=== PATIENT | male | born 1965 | race Caucasian/White ===

== ENCOUNTER 2017-09-17 12:30 | Emergency (ER) | payer OTHER ==
[2017-09-17 12:36] VITALS: BP 136/84; PULSE 97; TEMP 98.1; BMI 38.2
[2017-09-17] MEDS ORDERED: ALBUTEROL SO4 2.5/IPRATROPIUM 0.5 INH SOL 3 ML VIAL.NEB. NEB ONE ×2 (14:15→14:19)
--- NOTE | 2017-09-17 14:15 | PDOC ---
History of Present Illness - General Chief Complaint: Respiratory Stated Complaint: COUGH Time Seen by Provider: 09/17/17 14:07 History Source: Patient Exam Limitations: No Limitations - History of Present Illness Initial Comments: 09/17/17 14:16 states woke up at 3 AM this morning with severe cough and results and some shortness of breath, states felt like he could not catch his breath. Severity: reports: mild Past History - Travel Traveled outside of the country in the last 30 days: No - Past Medical History Allergies/Adverse Reactions: Allergies Allergy/AdvReac Type Severity Reaction Status Date / Time aspirin AdvReac Vomiting Verified 09/17/17 12:35 Home Medications: Ambulatory Orders Albuterol Sulfate [Proventil HFA Inhaler -] 1 - 2 inh PO QID #1 inhaler Fluticasone Prop 0.05% Nasal [Flonase] 2 spray NS BID #1 spraybtl 09/17/17 COPD: No Hypercholesterolemia: Yes Other medical history: vertigo - Surgical History Abdominal Surgery: Yes (LIPOSUCTION) - Suicide/Smoking/Psychosocial Hx Smoking Status: No Smoking History: Never smoked Number of Cigarettes Smoked Daily: 0 Hx Alcohol Use: No Substance Use Type: None Review of Systems - Review of Systems Able to Perform ROS?: Yes Is the patient limited [place] proficient: Yes Constitutional: Yes: Symptoms Reported, See HPI. No: Malaise HEENTM: Yes: See HPI, Nose Congestion. No: Symptoms Reported, Throat Pain (but posterior sinus drainage) Respiratory: Yes: Symptoms reported, See HPI, Cough, Shortness of Breath Musculoskeletal: Yes: Symptoms Reported, See HPI All Other Systems: Reviewed and Negative *Physical Exam - Vital Signs Last Vital Signs Temp Pulse Resp BP Pulse Ox 98.1 F 97 H 18 136/84 99 09/17/17 12:33 09/17/17 12:33 09/17/17 12:33 09/17/17 12:33 09/17/17 12:33 - Physical Exam General Appearance: Yes: Nourished, Appropriately Dressed. No: Apparent Distress HEENT: positive: SHILOH, Normal ENT Inspection, TMs Normal, Tonsillar Erythema ( with posterior white sinus drainage ). negative: Pharynx Normal Neck: positive: Tender, Supple, Lymphadenopathy (R), Lymphadenopathy (L) Respiratory/Chest: positive: Lungs Clear, Normal Breath Sounds Cardiovascular: positive: Regular Rate Gastrointestinal/Abdominal: positive: Soft. negative: Tender Extremity: positive: Normal Inspection Integumentary: positive: Dry, Warm, Pale Neurologic: positive: annual giving officer II-XII NML intact, Fully Oriented, Alert, Normal Mood/ Affect, Normal Response, Motor Strength 5/5 Progress Note - Progress Note Progress Note: Postnasal drip causing persistent cough. No clinical evidence of influenza or any significant respiratory pathology. Much improved after DuoNeb therefore will provide Proventil inhaler for the next 2 days then as needed Will encourage conservative measures and add Flonase inhaler *DC/Admit/Observation/Transfer Diagnosis at time of Disposition: Sinus drainage - Discharge Dispostion Disposition: HOME Condition at time of disposition: Stable Admit: No - Prescriptions Prescriptions: Fluticasone Prop 0.05% Nasal [Flonase] 2 spray NS BID #1 spraybtl - Referrals Referrals: Lola Damico MD [Primary Care Provider] - Kamaljit Case MD [Staff Physician] - - Patient Instructions Printed Discharge Instructions: Sinusitis (Alternative Therapy) Additional Instructions: Rest, drink lots of fluids: Teas, water, soups Saltwater gargles. Consider humidifier in room at night Steamy showers/seem to face break up mucus Avoid contact with allergens, exposure to pollens, close windows on a windy day Lots of handwashing and good hygiene Continue [id number] medications for symptomatic relief- may use allergic eyedrops for itching I Consider antihistamines daily until pollen season is over; Zyrtec, Claritin, Rachelle during the daytime and Benadryl at nighttime as will make sleepy Tylenol or Motrin for fever and pain Followup with private physician in one to 2 days as needed Consider following up with an nurse office/truck headlight assembler for skin testing and possible allergy shots Return to emergency department for worsened symptoms, fevers, dehydration - Post Discharge Activity Forms/Work/School Notes: Back to Work
== END 2017-09-17 14:54 | disposition home or self-care (01) ==
LOC: JERFT 12:30
PROC: 3E0F7GC Introduction of Other Therapeutic Substance into Respiratory Tract, Via Natural or Artificial Opening (ICD-10-PCS; principal; 2017-09-17)
DX: J34.89 Other specified disorders of nose and nasal sinuses (principal)
CPT/HCPCS: 99281-25

== ENCOUNTER 2019-05-27 13:13 | Emergency (ER) | payer OTHER ==
[2019-05-27 13:29] VITALS: BP 139/88; PULSE 78; TEMP 98.4; BMI 36.5
--- NOTE | 2019-05-27 14:41 | PDOC ---
History of Present Illness - General Chief Complaint: Cold Symptoms Stated Complaint: COLD SYMPTOMS Time Seen by Provider: 05/27/19 14:22 - History of Present Illness Initial Comments: 05/27/19 14:40 54-year-old male with sore throat x3 days fever on day 1 difficulty swallowing so his primary care physician was placed on a proton pump inhibitor and H2 suhas without relief Past History - Past Medical History Allergies/Adverse Reactions: Allergies Allergy/AdvReac Type Severity Reaction Status Date / Time aspirin AdvReac Vomiting Verified 09/17/17 12:35 Home Medications: Ambulatory Orders Albuterol Sulfate [Proventil HFA Inhaler -] 1 - 2 inh PO QID #1 inhaler Fluticasone Prop 0.05% Nasal [Flonase] 2 spray NS BID #1 spraybtl 09/17/17 Penicillin V Potassium [Pen Vee K -] 500 mg PO QID #40 tablet 05/27/19 COPD: No Hypercholesterolemia: Yes - Surgical History Abdominal Surgery: Yes (LIPOSUCTION) - Immunization History Immunization Up to Date: No - Psycho Social/Smoking Cessation Hx Smoking Status: No Smoking History: Never smoked Have you smoked in the past 12 months: No Number of Cigarettes Smoked Daily: 0 Information on smoking cessation initiated: No Hx Alcohol Use: No Drug/Substance Use Hx: No Substance Use Type: None Review of Systems - Review of Systems Constitutional: Yes: Fever HEENTM: Yes: Throat Swelling, Difficulty Swallowing *Physical Exam - Vital Signs Last Vital Signs Temp Pulse Resp BP Pulse Ox 98.4 F 78 16 139/88 98 05/27/19 13:26 05/27/19 13:26 05/27/19 13:26 05/27/19 13:26 05/27/19 13:26 - Physical Exam Comments: 05/27/19 14:41 HEAD: NC/AT EYES: Conjuntiva clear Ears: Canals and TM's normal NOSE: No d/c THROAT: Moist mucous membrances, oral pharanx erythemic without exudate, uvula midline NECK: Supple without adenopathy CARDIAC: S1 S2 LUNGS: CTA Full and Equal breath sounds ABDOMEN: Soft NT ND MS: Full ROM in all joints without edema NEUROLOGIC: No gross sensory or motor deficits, NVID SKIN: Normal color and temperature no lesions or rashes Discharge - Discharge Information Problems reviewed: Yes Clinical Impression/Diagnosis: Strep pharyngitis Condition: Stable Disposition: HOME - Admission No - Follow up/Referral Referrals: Nora Charles MD [Staff Physician] - - Patient Discharge Instructions Additional Instructions: Please take the antibiotics as directed and finish the entire course. Return to the emergency room for worsening symptoms. Tylenol and Motrin for fever and pain. Warm salt water gargles 5-6 times a day will also help with your pain. Follow-up with your primary care physician in 2 to 3 days without fail for further evaluation and treatment options and return to the emergency room should symptoms worsen. - Post Discharge Activity
[2019-05-27] MEDS ORDERED: DEXAMETHASONE LIQUID 0.5 MG/5 ML PO ONE (15:32)
[2019-05-27] MEDS ORDERED: DEXAMETHASONE SOD PHOSPHATE 10 MG/1 ML VIAL ONE (15:35)
== END 2019-05-27 15:39 | disposition home or self-care (01) ==
LOC: JERFT 13:13
DX: J02.0 Streptococcal pharyngitis (principal); B95.0 Streptococcus, group A, as the cause of diseases classified elsewhere; E78.00 Pure hypercholesterolemia, unspecified; Z88.6 Allergy status to analgesic agent
CPT/HCPCS: 87880; 99281-25